=== PATIENT | female | born 1960 | race Caucasian/White ===

== ENCOUNTER → 2017-04-05 | Outpatient (CLI) | payer MEDICARE, BC ==
--- NOTE | 2017-04-05 15:47 | WWHP ---
[facility] - HISTORY AND PHYSICAL DATE OF SERVICE: 04/05/2017 CHIEF COMPLAINT: Abdominal bloating and discomfort x5 days. HPI: This is a 56-year-old G3, P2-0-1-2 with an LMP of 2006. She is status post vaginal hysterectomy for abnormal bleeding. This was benign, but may have been precancerous. The patient states she has had a long history of occasional abdominal twinges. She states they can be variable and in different places in her abdomen. She states this has gone on for years. She developed decreased appetite during the past month. She denies nausea or vomiting. Last week, she noticed significant increase in her abdominal size and a bloating and full feeling. She states she felt full, even if she if she had not eaten for a long time. This also was associated with difficulty moving her bowels during the past 5 days. She states she felt like she needed to have a bowel movement, but nothing would come out. She finally did have a bowel movement 3 days ago and this felt like a normal bowel movement. The increased abdominal size and bloating did not improve after this bowel movement or after the second bowel movement. She was having some urinary symptoms. She denied dysuria during voiding, but states there was some pelvic discomfort after the completion of voiding. She went to an urgent care clinic [address] Krause at the [facility]. Urinalysis apparently showed signs of possible urinary tract infection and she was treated with Bactrim DS. She states she no longer has the discomfort after voiding. The abdominal pain has been throughout the entire abdomen, but seems to be greatest in the lower abdomen and slightly greater on the right side. The Bactrim did not seem to help this abdominal pain. She was told at the Urgent Care Clinic that her symptoms possibly could be related to ovarian cancer. 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 She tried to make an appointment with Dr. Mary but the doctor was not able to get her in for about 1 month. This was not acceptable to the patient and her daughter because of their concerns of ovarian cancer. She is unsure if she has gained or lost weight in the past several months, but she does feel like her face is thinner. Her abdomen feels larger and therefore, she thinks she may have gained weight, but she is not sure. PAST MEDICAL HISTORY: Right breast cancer in 1983. She is status post lumpectomy and tamoxifen treatment. Also CVA in 2010 and history of elevated cholesterol. MEDICATIONS: She is currently on Bactrim DS b.i.d. and aspirin 81 mg daily. ALLERGIES: AMPICILLIN, which causes tongue swelling and rash. PAST SURGICAL HISTORY: Vaginal hysterectomy in 2006, back surgery in the past. She did have an endometrial ablation prior to her hysterectomy, tonsils removed as a child, right wrist surgery in 1990 and multiple breast biopsies in the past. PAST OB HISTORY: Two vaginal deliveries and 1 voluntary termination of at age 19. 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 She was told that it was precancerous. She denies any history of STDs. SOCIAL HISTORY: She smokes about 1 pack of cigarettes per day and has about 4 alcohol-containing drinks per year. She denies drug use. 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 FAMILY HISTORY: A cousin had breast cancer at a young age. Grandmother had breast cancer. Mother had uterine cancer and grandfather had an CO. She denies known family history of cancer of ovaries or colon. REVIEW OF SYSTEMS: She is uncertain as to whether she has gained weight or lost weight recently as above. She denies respiratory or cardiac problems. GI: She has had decreased appetite with some difficulty having bowel movements during the past week. She denies nausea and vomiting. : She denies any unusual vaginal discharge. She occasionally can leak urine if she does not get to the bathroom on time when she has to go. She has had urinary symptoms that was treated with Bactrim as above. PHYSICAL EXAM: Blood pressure 107/66, height 5 feet 7 inches, weight 239 pounds. Temperature 98.8, pulse 76. This is a well-developed, heavyset white female, who is alert and oriented x3, in no acute distress. HEENT is within normal limits. NECK: Supple without mass or thyromegaly. There is no supraclavicular adenopathy. CHEST AND LUNGS: Clear to auscultation. HEART: Regular rate and rhythm. Breast exam was deferred. ABDOMEN: 2+ bowel sounds in all quadrants. The abdomen is obese, soft and there is minimal low abdominal tenderness without rebound tenderness. There are no palpable abdominal masses. PELVIC EXAM: External genitalia reveals mild atrophy without lesions. Vagina reveals mild atrophy without lesions. There is no evidence of prolapse. Bimanual exam is negative for mass or tenderness. Rectovaginal exam is negative for mass or tenderness and is negative for occult blood. EXTREMITIES: Nontender. IMPRESSION: 1. A 56-year-old female, status post vaginal hysterectomy for abnormal bleeding. 2. A one-week history of abdominal bloating and generalized abdominal pain. Differential diagnoses will include intestinal gas, GI bloating, as well as ovarian neoplasm. I do feel that ovarian neoplasm is less likely than a GI cause. 3. Anxiety and fear of cancer. This is understandable given her history of breast cancer. PLAN: 1. Pap smears have been discontinued. 2. A pelvic ultrasound will be done today and this will be a transvaginal ultrasound. 3. If no abnormal pelvic mass is noted, I feel a GI cause for her abdominal bloating, distention, and discomfort is then more likely than an ovarian problem. 4. If the pelvic ultrasound is unremarkable, I have asked her to establish with a primary care physician and follow up with them for possible GI problems if her symptoms persist. 5. 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 6. Total time spent with the patient 45 minutes. MMTOMMYL / ROLANDON: [id number] /
--- NOTE | 2017-04-05 15:58 | US ---
EXAMINATION TYPE: US pelvis limited transvag DATE OF EXAM: 04/05/2017 COMPARISON: NONE CLINICAL HISTORY: R10.84 GEN ABDOMINAL PAIN/R14.0 ABD BLOATING. Pt states bloating and lower pelvic p ain x 6 days, hysterectomy 2006 TECHNIQUE: Transvaginal (TV) and Transabdominal (TA) endovaginal scanning performed for attempt to b sarah delineate pelvic anatomy. Date of LMP: 2006 EXAM MEASUREMENTS: Uterus: Surgically absent Endometrial Stripe: Surgically absent Right Ovary: Unable to visualize Left Ovary: Unable to visualize 5. Bilateral Adnexa: wnl 6. Posterior cul-de-sac: wnl No abnormality could be appreciated within pelvis, ovaries not visualized due to many peristalsing bowel loops and large pt body habitus Results discussed with Dr Plaza at time of exam* IMPRESSION: Postop changes.
== END | disposition home or self-care (01) ==
LOC: WWCWWP 11:10
PROVIDERS: ATTEND Obstetrics & Gynecology
DX: R14.0 Abdominal distension (gaseous) (principal); R10.84 Generalized abdominal pain; Z98.890 Other specified postprocedural states
CPT/HCPCS: 76830; 76857

== ENCOUNTER → 2023-03-07 | Outpatient (CLI) | payer MEDICARE, OTHER ==
[2023-03-07 12:23] LABS: Hypochromasia Slight; MCH 30.8 pg (25.0-35.0); MCHC 31.8 g/dL (31.0-37.0); MCV 96.8 fL (80.0-100.0); Mean Platelet Volume 8.1; Platelet Count 329 k/uL (150-450); RBC 4.24 m/uL (3.80-5.40); RDW 13.1 % (11.5-15.5); WBC 4.8 k/uL (3.8-10.6)
[2023-03-07 17:05] LABS: Albumin 4.7 d/dL (3.8-4.9); Protein, Total 6.8 d/dL (6.2-8.2)
[2023-03-07 17:10] LABS: % Iron Saturation 17.55 (12.00-45.00); ALT 29 U/L (8-44); AST 25 U/L (13-35); Albumin 4.5 d/dL (3.8-4.9); Albumin/Globulin Ratio 1.96 Ratio (1.60-3.17); Alkaline Phosphatase 96 U/L (41-126); Calcium 10.1 mg/dL (8.7-10.3); Carbon Dioxide 26.4 mmol/L (21.6-31.8); Chloride 103 mmol/L (96-109); Globulin 2.3 d/dL (1.6-3.3); Glucose 107 mg/dL (70-110); Iron 56 UG/DL (50-170); Potassium 4.4 mmol/L (3.5-5.5); Sodium 141 mmol/L (135-145); Total Bilirubin 0.2 mg/dL (0.3-1.2); Total Iron Binding Capacity 319 UG/DL (228-460); Total Protein 6.8 d/dL (6.2-8.2)
[2023-03-08 13:42] LABS: APTT 35 Sec(s) (<43); Dilute Russell Viper Venom 35 Sec(s) (<44)
[2023-03-08 17:04] LABS: Gamma Globulin 0.62 d/dL (0.70-1.50)
[2023-03-09 10:50] LABS: Free Kappa Lt Chain Qnt, Serum 2.31 mg/dL (0.33-1.94)
== END | disposition home or self-care (01) ==
LOC: LABWHC1 11:36
PROVIDERS: ATTEND Internal Medicine Medical Oncology
DX: D64.9 Anemia, unspecified (principal); D80.1 Nonfamilial hypogammaglobulinemia; Z87.39 Personal history of other diseases of the musculoskeletal system and connective tissue
CPT/HCPCS: 36415; 80053; 82728; 83540; 83550; 83883; 84165; 85027; 85613; 85730; 86147; 86334